=== PATIENT | male | born 1945 ===

== ENCOUNTER 2024-05-21 14:47 | Inpatient (IN) | payer OTHER ==
[~2024-05-21] VITALS: Ht 188 cm; Wt 85.5 kg
[2024-05-21 17:29] LABS: BASOPHILS % (AUTO) 1.2 % (0.0-2.0); EOSINOPHILS % (AUTO) 14.4 % (1.0-6.0); HEMOGLOBIN 15.6 g/dL (13.5-17.5); LYMPHOCYTES # (AUTO) 2.4 K/uL (1.0-4.8); LYMPHOCYTES % (AUTO) 23.5 % (22.0-44.0); MEAN CORPUSCULAR HEMOGLOBIN 31.4 pg (26.0-34.0); MEAN CORPUSCULAR VOLUME 92 fL (80-100); MONOCYTES # (AUTO) 0.7 K/uL (0.1-1.0); MONOCYTES % (AUTO) 6.6 % (2.0-9.0); NEUTROPHILS # (AUTO) 5.6 K/uL (1.8-7.7); NEUTROPHILS % (AUTO) 54.3 % (40.0-70.0); PLATELET COUNT (AUTO) 280 K/uL (150-450); RED BLOOD CELL COUNT(AUTO) 4.98 MIL/uL (4.50-5.90); RED CELL DISTRIBUTION WIDTH 13.7 % (11.5-14.5); WHITE BLOOD COUNT (AUTO) 10.3 K/uL (4.5-11.0)
[2024-05-21 17:30] LABS: CALCIUM, TOTAL 9.6 mg/dL (8.8-10.5); CREATININE 1.32 mg/dL (0.60-1.30); POTASSIUM 4.6 mmol/L (3.5-5.1)
[2024-05-21] MEDS ORDERED: LEVA15HF3 IH (19:40)
[2024-05-21] MEDS ORDERED: FAMO20 PO (19:40)
[2024-05-21] MEDS ORDERED: EMPA25TA3 PO (19:40)
[2024-05-21] MEDS ORDERED: METF-81 PO (19:40)
[2024-05-21] MEDS ORDERED: ATOR40TA28 PO (19:40)
[2024-05-21] MEDS ORDERED: LISI-892 PO (19:40)
[2024-05-21] MEDS ORDERED: ASPI-1444 PO (19:40)
[2024-05-21] MEDS ORDERED: MAGN-169 PO (19:40)
[2024-05-21] MEDS ORDERED: GLIP5TAB16 PO (19:40)
[2024-05-21] MEDS ORDERED: FLUO30CR36 TP (19:40)
[2024-05-21] MEDS ORDERED: MOME17SP11 NASAL (19:43)
[2024-05-21] MEDS ORDERED: MORPHINE SULFATE 2 MG/ML SYRINGE IVP PRN (20:15)
[2024-05-21] MEDS ORDERED: ZOLPIDEM TARTRATE 5 MG TABLET PO PRN (20:15)
[2024-05-21] MEDS ORDERED: MAGNESIUM HYDROXIDE SUSPENSION 30 ML UDCUP PO PRN ×2 (20:15)
[2024-05-21] MEDS ORDERED: LEVALBUTEROL TARTRATE HFA 45 MCG/PUFF 15 GM INHALER IH PRN (20:15)
[2024-05-21] MEDS ORDERED: ACETAMINOPHEN 325 MG TABLET PO PRN (20:15)
[2024-05-21] MEDS ORDERED: BISACODYL 10 MG RECTAL RECTAL SUPPOSITORY PR PRN (20:15)
[2024-05-21] MEDS ORDERED: ALBUTEROL SULFATE 2.5 MG/0.5 ML NEB SOLUTION NEB PRN (20:15)
[2024-05-21] MEDS ORDERED: HYDROCODONE/ACETAMINOPHEN 5-325 MG TABLET PO PRN (20:15)
[2024-05-21] MEDS ORDERED: IPRATROPIUM BROMIDE 0.5 MG/2.5 ML NEB SOLUTION NEB PRN (20:15)
[2024-05-21] MEDS ORDERED: ONDANSETRON HCL 4 MG/2 ML VIAL IVP PRN (20:15)
[2024-05-21 21:27] VITALS: BP 140/80; PULSE 81; RESP 18; TEMP 98.3; O2SAT 99
[2024-05-21] MEDS: SODIUM CHLORIDE 0.45% 1,000 ML IV SCH (22:10)
[2024-05-21] MEDS: HEPARIN SODIUM,PORCINE 5,000 UNITS/ML VIAL SQ SCH (23:36)
[2024-05-21] MEDS: MOMETASONE FUROATE 50 MCG/SPRAY 17 GM NASAL SPRAY NASAL SCH (23:36)
[2024-05-22 01:36] LABS: GLUCOMETER DEV NAME(LOC) 6S.2; GLUCOSE,POINT OF CARE 189 MG/DL (70-110)
[2024-05-22 04:55] VITALS: BP 129/72; PULSE 61; RESP 18; TEMP 98.2; O2SAT 94
[2024-05-22] MEDS: GlipiZIDE 5 MG TABLET PO SCH (06:10)
[2024-05-22 07:35] VITALS: BP 116/71; PULSE 65; RESP 18; TEMP 98; O2SAT 99
[2024-05-22] MEDS: PANTOPRAZOLE SODIUM 40 MG DR TABLET PO SCH (08:20)
[2024-05-22] MEDS: FAMOTIDINE 20 MG TABLET PO SCH (08:20)
[2024-05-22] MEDS: LISINOPRIL 5 MG TABLET PO SCH (08:21)
[2024-05-22] MEDS: ATORVASTATIN CALCIUM 40 MG TABLET PO SCH (08:21)
[2024-05-22] MEDS: ASPIRIN 81 MG DR TABLET PO SCH (08:21)
[2024-05-22] MEDS: EMPAGLIFLOZIN 25 MG TABLET PO SCH (08:21)
[2024-05-22 12:17] LABS: CALCIUM, TOTAL 8.9 mg/dL (8.8-10.5); CREATININE 1.35 mg/dL (0.60-1.30); POTASSIUM 4.4 mmol/L (3.5-5.1)
[2024-05-22 19:52] VITALS: BP 118/69; PULSE 75; RESP 18; TEMP 98.4; O2SAT 96
[2024-05-23 05:19] VITALS: BP 127/65; PULSE 59; RESP 18; TEMP 97.6; O2SAT 99
[2024-05-23 08:57] VITALS: BP 115/70; PULSE 65; RESP 18; TEMP 97.6; O2SAT 98
[2024-05-23 19:30] VITALS: BP 109/64; PULSE 68; RESP 18; TEMP 97.9; O2SAT 97
== END 2024-05-23 21:45 | DRG 641 ==
LOC: EMS 14:47 → EDH 20:11 → 6S 21:18
PROVIDERS: ADMIT Hospitalist; ATTEND Hospitalist
DX: E86.0 Dehydration (principal); I10 Essential (primary) hypertension; N28.9 Disorder of kidney and ureter, unspecified; E11.9 Type 2 diabetes mellitus without complications; J45.909 Unspecified asthma, uncomplicated; E78.00 Pure hypercholesterolemia, unspecified
CPT/HCPCS: 80048; 82962; 85025; 93005; 99285; J1644